=== PATIENT | male | born 1960 | race Caucasian/White ===

== ENCOUNTER 2017-05-08 11:21 | Emergency (ER) | payer OTHER ==
[2017-05-08 12:28] VITALS: BP 106/76
--- NOTE | 2017-05-08 12:31 | ERNOTE ---
Lower Extremity HPI - General Lower Extremities Pain: knee: right, foot: right Time Seen by Provider: 05/08/17 11:34 Source: patient Exam Limitations: no limitations - Immun/Allergies/Home Medications Allergies/Adverse Reactions: Allergies Allergy/AdvReac Type Severity Reaction Status Date / Time No Known Allergies Allergy Verified 05/08/17 11:35 Home Medications: HOME MEDICATIONS Lisinopril/Hydrochlorothiazide [Lisinopril-Hctz 10-12.5 mg Tab] 1 each PO DAILY #30 tablet 08/14/16 [Last Taken Unknown] metFORMIN HCL [Metformin HCl ER] 500 mg PO DAILY #30 [id number] 08/14/16 [Last Taken Unknown] Albuterol Sulfate [Proair Hfa] 2 puff IH QID PRN 05/08/17 [Last Taken Unknown] Cephalexin 500 mg PO Q8H 05/08/17 [Last Taken Unknown] Sulfamethoxazole/Trimethoprim [Bactrim Ds] 1 tab PO BID #20 tab 05/08/17 [Last Taken Unknown] - History of Present Illness Narrative: Patient is a known diabetic, appears to take fairly good care of his diabetes, he has 2 wounds on the right leg one on the bottom of the foot and one on the right knee that are poorly healing. Patient shows up because he does not know exactly what to do. Occurred: other - ongoing for the past 3 weeks Method of Injury: Reports: no apparent injury Loss of Consciousness: Reports: no loss of consciousness Other Injuries: Reports: none Review of Systems - Review of Systems Constitutional: Present: See HPI EYE: Present: no symptoms reported ENT: Present: no symptoms reported Respiratory: Present: no symptoms reported Cardiology: Present: no symptoms reported Gastrointestinal/Abdominal: Present: no symptoms reported Genitourinary: Present: no symptoms reported Musculoskeletal: Present: no symptoms reported Skin: Present: See HPI Neurological: Present: no symptoms reported Endocrine: Present: no symptoms reported Hematologic/Lymphatic: Present: no symptoms reported Psych: Present: no symptoms reported - Patient's Past Medical History Patient History - Medical: Diabetes Type 2 Patient History - Cardiac/Respiratory: Hypertension, Hyperlipidemia Patient History - Cancer: No Hx of Cancer Patient History - Surgical Procedures: Other Patient History - Other: None - Social History Living Situations: home Psych History: No pertinent hx Smoking Status: Never smoker Have you smoked in the past 12 months: No Alcohol Use: heavy Drug Use: none Physical Exam - Physical Exam General Appearance: Present: wd/wn, alert, no apparent distress Eye Exam: Normal inspection: bilateral, PERRL: bilateral Ears, Nose, Throat: Present: normal ENT inspection, H, normal pharynx Neck: Present: normal inspection, nontender Respiratory: Present: no respiratory distress, normal breath sounds, no accessory muscle use, chest nontender, lungs clear Cardiovascular/Chest: Present: regular rate, rhythm, no murmur, normal peripheral pulses Gastrointestinal/Abdominal: Present: normal bowel sounds, nontender, nondistended, soft, no organomegaly Rectal Exam: Present: deferred Back Exam: Present: normal inspection, normal range of motion Extremity Exam: Present: normal inspection, non-tender, no edema, normal range of motion Neurological Exam: Present: alert, oriented, normal mood/affect Skin Exam: Present: other - patient has a poorly healing puncture wound on the bottom of the right foot and a large area on the right kneecap area prepatellar that appears to be having extraordinarily difficult healing Lymphatic Exam: Present: no adenopathy ED Progress - Vital Signs Patient's Vital Signs:: I have reviewed the patient's vital signs. Vital Signs: Vital Signs 05/08/17 11:32 Temperature 36.4 C L Pulse Rate 73 Respiratory 14 Rate Blood Pressure 118/80 O2 Sat by Pulse 97 Oximetry - Progress/Reassessment Chief Complaint: Lower Extremity Pain/ Injury Plan - Plan Plan: We have the patient an appointment at the wound clinic this coming , as his wounds were already 3 weeks old and they're healing poorly I believe the patient needs some fairly aggressive ongoing treatment to get these seemed to heal up. Patient's blood sugar here in the ER was 82, so that does not appear to be a major impediment at this juncture. Departure Clinical Impression: Wound of lower extremity Qualifiers: Encounter type: initial encounter Laterality: right Qualified Code(s): S81.801A - Unspecified open wound, right lower leg, initial encounter - Departure Disposition: Home self-care Condition: Good Instructions: Wound Infection, [id number] Additional Instructions: Go to the wound clinic at 8:30 am this Referrals: Karma Sorenson, PHOTOGR[employer]HY [employer]ER [Primary Care Provider] - Prescriptions: Sulfamethoxazole/Trimethoprim [Bactrim Ds] 1 tab PO BID #20 tab
== END 2017-05-08 12:37 | disposition home or self-care (01) ==
LOC: ER 11:21
DX: S81.801A Unspecified open wound, right lower leg, initial encounter (principal)